=== PATIENT | male | born 1995 | race Caucasian/White ===

== ENCOUNTER 2019-08-13 00:50 | Emergency (ER) | payer SELFPAY ==
[2019-08-13 01:19] VITALS: BP 125/66; PULSE 139; RESP 18; TEMP 37.1; O2SAT 98; BMI 23.6
[2019-08-13 01:38] VITALS: BP 150/90; PULSE 130; RESP 20; O2SAT 96
--- NOTE | 2019-08-13 01:38 | W.ED.URI ---
Documented by User: REBECA Coker 08/13/19 17:31 HPI - URI/Sore Throat General: Chief Complaint: General Medical Stated Complaint: fever/vomiting Time Seen by Provider: 08/13/19 01:29 Source: patient Mode of arrival: ambulatory Limitations: no limitations History of Present Illness: HPI Narrative: Patient is a 23-year-old male who presents to ED today with complaints of a sore throat that began this morning. Patient tells me pain has progressed throughout the day. Patient is still able to eat, drink, control his own secretions. He has had two sick contacts who have recently been diagnosed with tonsillitis. Patient reports running fevers of greater than 101. He has had one episode of vomiting today. He has noticed a muffled voice. He denies neck pain or neck stiffness. MD elicited complaint: sore throat Consistency: constant Severity: moderate Able to tolerate fluids by mouth: Yes Exacerbating factors: swallowing Relieving factors: nothing Associated symptoms: Reports fever(s) (101); Deny abdominal pain, chills, chest pain, ear or mastoid pain, headache(s), nasal congestion, nausea, sinus pain or vomiting Treatments prior to arrival: other (advil earlier today) Review of Systems General: Reports: 10 or more systems reviewed and unremarkable except in HPI and below Const: Reports: fever(s) (101); Denies: chills, body aches, change in appetite, change in weight, fatigue or malaise Eyes: Denies: change in vision, blurry vision, photophobia, eye discomfort, eye discharge, floaters or seeing flashes ENMT: Reports: throat pain, enlarged tonsils and odynophagia; Denies: uvular edema, hoarseness, mouth pain, swelling of lips/tongue, oral sores, dental pain, ear or mastoid pain, ear discharge, change in hearing, tinnitus, disequilibrium, nasal discharge, nasal congestion, post nasal drip or sinus pain Card: Denies: chest pain Resp: Denies: dyspnea, productive cough or non-productive cough GI: Denies: abdominal pain, nausea or vomiting Musc: Denies: neck pain or back pain Skin/Breast: Denies: rash Neuro: Denies: headache(s), numbness in extremities, weakness in extremities or sensory changes All/Imm: Denies: facial swelling or seasonal rhinorrhea PFSH ED PFSH: Social History (Updated 03/20/19 @ 14:08 by Vida Zhu LPN) Smoking and tobacco status: current every day smoker Alcohol intake: never Physical Exam Const: COMMON NORMALS: no acute distress, average body habitus, patient oriented x3, no limitations, healthy appearing, alert and well nourished OTHER: feels febrile HENMT: COMMON NORMALS: normocephalic, atraumatic, hearing grossly normal bilaterally, external ears normal, EAC's normal, TM's normal bilaterally, Normal external nose present, Normal nasal mucous membranes and turbinates present, moist oral mucous membranes, dentition normal and gingiva normal HEAD & SCALP: normal to inspection, normocephalic and atraumatic FACE & SINUS: normal facial exam and sinuses nontender NOSE: Normal external nose present and Normal nasal mucous membranes and turbinates present EXTERNAL EAR: Yes external ears normal EXTERNAL AUDITORY CANAL: EAC's normal TYMPANIC MEMBRANE: TM's normal bilaterally THROAT: uvula midline, abnormal tonsil bilateral (extremely enlarged R>L exudative tonsillitis) erythema and exudates, posterior oropharynx abnormal and other (muffled voice; 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); no peritonsillar mass and no uvular edema Eye: COMMON NORMALS: Equal, round and reactive pupils present, EOMs intact bilaterally and conjunctivae normal CONJUNCTIVA: Yes conjunctivae normal PUPIL: Yes Equal, round and reactive pupils present Neck/C-Spine: COMMON NORMALS: full ROM and no lymphadenopathy Resp: COMMON NORMALS: normal respiratory effort Neuro: COMMON NORMALS: patient oriented x3 SENSORIUM/ORIENTATION: Yes alert Skin: COMMON NORMALS: no rashes or lesions noted GENERAL SKIN EXAM: no rashes or lesions noted Course Vital Signs: Vital signs: Vital Signs Temperature 99.4 F 08/13/19 03:31 Pulse Rate 115 H 08/13/19 04:03 Respiratory Rate 18 08/13/19 04:03 Blood Pressure 113/71 08/13/19 04:03 Pulse Oximetry 98 08/13/19 04:03 MDM - URI/Sore Throat MDM Narrative: Medical decision making narrative: Care transferred to Dr. Yancey at [address] scan; he has IV clindamycin and decadron ordered here; clinically has tonsillitis however given muffled voice, fevers, and leukocytosis of 24,[address] imaging to further evaluate and r/o abscess Lab Data: Labs: Lab Results 08/13/19 08/13/19 08/13/19 Range/Units 01:49 01:49 01:49 WBC 24.0 H (4.0-10.0) 10^3/ uL RBC 5.86 H (4.1-5.3) 10^6/u L Hgb 15.9 (11.7-16.6) g/dL Hct 47.6 (42.0-52.0) % MCV 81.2 (80-94) fL MCH 27.1 L (28.0-34.0) pg MCHC 33.4 (30.0-36.0) g/dL RDW 12.5 (12.1-15.1) % Plt Count 283 (130-400) 10^3/c mm MPV 9.7 (7.4-10.4) fL Neut % (Auto) 85.9 % Lymph % (Auto) 4.8 % [place] % (Auto) 8.2 % Eos % (Auto) 0.0 % Baso % (Auto) 0.3 % Neut # (Auto) 20.6 H (1.8-7.7) 10^3/u L Lymph # (Auto) 1.2 (0.8-4.8) 10^3/u L [place] # (Auto) 2.0 H (0.2-0.9) 10^3/u L Eos # (Auto) 0.0 (0.0-0.8) 10^3/u L Baso # (Auto) 0.1 (0.0-0.1) 10^3/u L Nucleated RBC % (a uto) 0 % Nucleated RBCs # 0.0 /100WBC Sodium 135 L (136-145) mmol/L Potassium 4.5 (3.5-5.1) mmol/L Chloride 97 L (98-107) mmol/L Carbon Dioxide 26 (22-29) mmol/L Anion Gap 16.5 (5-19) BUN 10 (6-20) mg/dL Creatinine 1.2 (0.7-1.2) mg/dL GFR Calculation 76.4 L (90-130) mL/min Glucose 125 H (65-115) mg/dL Calculated Osmolal ity 277 L (285-295) mOsm/k g Lactate (0.5-2.2) mmol/L Calcium 9.6 (8.5-10.5) mg/dL Total Bilirubin 0.5 (0.15-1.2) mg/dL AST 15 (0-40) U/L ALT 20 (0-41) U/L Alkaline Phosphata se 69 (40-130) IU/L Total Protein 7.9 (6.6-8.7) g/dL Albumin 4.4 (3.5-5.2) g/dL Globulin 3.5 (1.3-4.6) g/dL Monoscreen Negative (Negative) Group A Strep Rapi d (Negative) 08/13/19 08/13/19 Range/Units 01:49 02:25 WBC (4.0-10.0) 10^3/ uL RBC (4.1-5.3) 10^6/u L Hgb (11.7-16.6) g/dL Hct (42.0-52.0) % MCV (80-94) fL MCH (28.0-34.0) pg MCHC (30.0-36.0) g/dL RDW (12.1-15.1) % Plt Count (130-400) 10^3/c mm MPV (7.4-10.4) fL Neut % (Auto) % Lymph % (Auto) % [place] % (Auto) % Eos % (Auto) % Baso % (Auto) % Neut # (Auto) (1.8-7.7) 10^3/u L Lymph # (Auto) (0.8-4.8) 10^3/u L [place] # (Auto) (0.2-0.9) 10^3/u L Eos # (Auto) (0.0-0.8) 10^3/u L Baso # (Auto) (0.0-0.1) 10^3/u L Nucleated RBC % (a uto) % Nucleated RBCs # /100WBC Sodium (136-145) mmol/L Potassium (3.5-5.1) mmol/L Chloride (98-107) mmol/L Carbon Dioxide (22-29) mmol/L Anion Gap (5-19) BUN (6-20) mg/dL Creatinine (0.7-1.2) mg/dL GFR Calculation (90-130) mL/min Glucose (65-115) mg/dL Calculated Osmolal ity (285-295) mOsm/k g Lactate 1.0 (0.5-2.2) mmol/L Calcium (8.5-10.5) mg/dL Total Bilirubin (0.15-1.2) mg/dL AST (0-40) U/L ALT (0-41) U/L Alkaline Phosphata se (40-130) IU/L Total Protein (6.6-8.7) g/dL Albumin (3.5-5.2) g/dL Globulin (1.3-4.6) g/dL Monoscreen (Negative) Group A Strep Rapi d Negative (Negative) Discharge Plan Discharge Patient Disposition: Home, Self-Care Condition: Stable Prescriptions: New clindamycin HCl 300 mg capsule 300 mg PO Q8H 10 Days Qty: 30 RF: 0 Discharge Orders: Discharge Order (Routine); Ordered 08/13/19 Ordered By: Ajith Yancey Referrals: Binu Valenzuela MD [Physician] - 1-3 days Discharge Diet: Advance as tolerated Discharge Activity: Resume usual activity Patient Instructions: Tonsillitis (ED) Discharge Date/Time: 08/13/19 04:15 Coding Level of Care Code ED Physical Therapy Assistant Instructor for Chg Fwd Exam Detailed Documented by User: Ajith Yancey MD 08/13/19 04:17 HPI - URI/Sore Throat General: Chief Complaint: General Medical Stated Complaint: fever/vomiting Time Seen by Provider: 08/13/19 01:29 [facility] ED PFSH: Social History (Updated 03/20/19 @ 14:08 by Vida Zhu LPN) Smoking and tobacco status: current every day smoker Alcohol intake: never Course Vital Signs: Vital signs: Vital Signs Temperature 99.4 F 08/13/19 03:31 Pulse Rate 115 H 08/13/19 04:03 Respiratory Rate 18 08/13/19 04:03 Blood Pressure 113/71 08/13/19 04:03 Pulse Oximetry 98 08/13/19 04:03 MDM - URI/Sore Throat MDM Narrative: Medical decision making narrative: Mitch presents here with bilateral tonsillitis with no abscess. Patient CTs scan shows no signs of airway obstruction. Patient is handling his own secretions well here. Patient given IV Decadron and clindamycin. Will prescribe clindamycin for home and he is to follow-up with ENT in 2 to 4 days. He is return if worsening. He understands and agrees to the plan. Lab Data: Labs: Lab Results 08/13/19 08/13/19 08/13/19 Range/Units 01:49 01:49 01:49 WBC 24.0 H (4.0-10.0) 10^3/ uL RBC 5.86 H (4.1-5.3) 10^6/u L Hgb 15.9 (11.7-16.6) g/dL Hct 47.6 (42.0-52.0) % MCV 81.2 (80-94) fL MCH 27.1 L (28.0-34.0) pg MCHC 33.4 (30.0-36.0) g/dL RDW 12.5 (12.1-15.1) % Plt Count 283 (130-400) 10^3/c mm MPV 9.7 (7.4-10.4) fL Neut % (Auto) 85.9 % Lymph % (Auto) 4.8 % [place] % (Auto) 8.2 % Eos % (Auto) 0.0 % Baso % (Auto) 0.3 % Neut # (Auto) 20.6 H (1.8-7.7) 10^3/u L Lymph # (Auto) 1.2 (0.8-4.8) 10^3/u L [place] # (Auto) 2.0 H (0.2-0.9) 10^3/u L Eos # (Auto) 0.0 (0.0-0.8) 10^3/u L Baso # (Auto) 0.1 (0.0-0.1) 10^3/u L Nucleated RBC % (a uto) 0 % Nucleated RBCs # 0.0 /100WBC Sodium 135 L (136-145) mmol/L Potassium 4.5 (3.5-5.1) mmol/L Chloride 97 L (98-107) mmol/L Carbon Dioxide 26 (22-29) mmol/L Anion Gap 16.5 (5-19) BUN 10 (6-20) mg/dL Creatinine 1.2 (0.7-1.2) mg/dL GFR Calculation 76.4 L (90-130) mL/min Glucose 125 H (65-115) mg/dL Calculated Osmolal ity 277 L (285-295) mOsm/k g Lactate (0.5-2.2) mmol/L Calcium 9.6 (8.5-10.5) mg/dL Total Bilirubin 0.5 (0.15-1.2) mg/dL AST 15 (0-40) U/L ALT 20 (0-41) U/L Alkaline Phosphata se 69 (40-130) IU/L Total Protein 7.9 (6.6-8.7) g/dL Albumin 4.4 (3.5-5.2) g/dL Globulin 3.5 (1.3-4.6) g/dL Monoscreen Negative (Negative) Group A Strep Rapi d (Negative) 08/13/19 08/13/19 Range/Units 01:49 02:25 WBC (4.0-10.0) 10^3/ uL RBC (4.1-5.3) 10^6/u L Hgb (11.7-16.6) g/dL Hct (42.0-52.0) % MCV (80-94) fL MCH (28.0-34.0) pg MCHC (30.0-36.0) g/dL RDW (12.1-15.1) % Plt Count (130-400) 10^3/c mm MPV (7.4-10.4) fL Neut % (Auto) % Lymph % (Auto) % [place] % (Auto) % Eos % (Auto) % Baso % (Auto) % Neut # (Auto) (1.8-7.7) 10^3/u L Lymph # (Auto) (0.8-4.8) 10^3/u L [place] # (Auto) (0.2-0.9) 10^3/u L Eos # (Auto) (0.0-0.8) 10^3/u L Baso # (Auto) (0.0-0.1) 10^3/u L Nucleated RBC % (a uto) % Nucleated RBCs # /100WBC Sodium (136-145) mmol/L Potassium (3.5-5.1) mmol/L Chloride (98-107) mmol/L Carbon Dioxide (22-29) mmol/L Anion Gap (5-19) BUN (6-20) mg/dL Creatinine (0.7-1.2) mg/dL GFR Calculation (90-130) mL/min Glucose (65-115) mg/dL Calculated Osmolal ity (285-295) mOsm/k g Lactate 1.0 (0.5-2.2) mmol/L Calcium (8.5-10.5) mg/dL Total Bilirubin (0.15-1.2) mg/dL AST (0-40) U/L ALT (0-41) U/L Alkaline Phosphata se (40-130) IU/L Total Protein (6.6-8.7) g/dL Albumin (3.5-5.2) g/dL Globulin (1.3-4.6) g/dL Monoscreen (Negative) Group A Strep Rapi d Negative (Negative) Imaging Data^: ct neck: Attestation: I personally reviewed and interpreted this imaging study as follows: Radiologist's impression: [address] [address] [address] Scan Report Signed Patient: MITCH DALE Unit #: [id number] : 1995 Age/Sex: 23 / M ADM Date: 08/13/19 Loc: ER Room/Bed: Attending Dr: Ordering Provider/Ordering MD: Micaela Dean Date of Service: 08/13/19 Procedure(s): CT neck w con* [id number] Accession Number(s): [id number] Report Number: [id number] PROCEDURE INFORMATION: Exam: CT Neck With Contrast Exam date and time: 08/13/2019 2:31 AM Age: 23 years old Clinical indication: Throat pain; Additional info: Tonsillitis; Muffled voice; Tachy, febrile, leukocytosis TECHNIQUE: Imaging protocol: Computed tomography images of the neck with intravenous contrast. Radiation optimization: All CT scans at this facility use at least one of these dose optimization techniques: automated exposure control; mA and/or kV adjustment per patient size (includes targeted exams where dose is matched to clinical indication); or iterative reconstruction. Contrast material: OMNI 300; Contrast volume: 95 ml; Contrast route: INTRAVENOUS (IV); COMPARISON: No relevant prior studies available. RADIATION DOSE METRICS: Total DLP (mGy-cm): 721.62 FINDINGS: Sinuses: There is opacification of the left maxillary sinus which appears chronic. Nasopharynx: Mild adenoid enlargement. Oropharynx: Bilateral tonsillar enlargement, right greater than left. There is mild mass effect on the right oropharynx which is otherwise patent. A well-defined peripherally enhancing drainable fluid collection is not yet identified. Hypopharynx: Unremarkable. Larynx: Normal epiglottis. Retropharyngeal space: Unremarkable. Submandibular/Parotid glands: Glands are normal in size. Thyroid: No enlarged or calcified nodules. Lymph nodes: No lymphadenopathy. Trachea: Visualized trachea is unremarkable. Lungs: Unremarkable. Bones/joints: No acute fracture. Soft tissues: Unremarkable. CT/CT neck w con* [id number] IMPRESSION: Bilateral tonsillitis, right greater than left. A drainable fluid collection such as an abscess is not yet identified. Continue short-term follow-up as clinically warranted. Discharge Plan Discharge Patient Disposition: Home, Self-Care Condition: Stable Prescriptions: New clindamycin HCl 300 mg capsule 300 mg PO Q8H 10 Days Qty: 30 RF: 0 Discharge Orders: Discharge Order (Routine); Ordered 08/13/19 Ordered By: Ajith Yancey Referrals: Binu Valenzuela MD [Physician] - 1-3 days Discharge Diet: Advance as tolerated Discharge Activity: Resume usual activity Patient Instructions: Tonsillitis (ED) Discharge Date/Time: 08/13/19 04:15 Coding Level of Care Code ED Physical Therapy Assistant Instructor for Chg Fwd Exam Detailed
[2019-08-13] MEDS: acetaminophen 500 mg Tablet 1000 MG PO (01:41)
[2019-08-13 01:55] LABS: Basophils # 0.1 10^3/uL (0.0-0.1); Basophils % 0.3 %; Hematocrit 47.6 % (42.0-52.0); Hemoglobin 15.9 g/dL (11.7-16.6); Lymphocytes # 1.2 10^3/uL (0.8-4.8); Lymphocytes % 4.8 %; Mean Corpuscular HGB Conc 33.4 g/dL (30.0-36.0); Mean Corpuscular Hemoglobin 27.1 pg (28.0-34.0); Mean Corpuscular Volume 81.2 fL (80-94); Mean Platelet Volume 9.7 fL (7.4-10.4); Monocytes % 8.2 %; Neutrophils # 20.6 10^3/uL (1.8-7.7); Neutrophils % 85.9 %; Nucleated Red Blood Cells % 0 %; Platelet Count 283 10^3/cmm (130-400); Red Blood Count 5.86 10^6/uL (4.1-5.3); Red Cell Distribution Width 12.5 % (12.1-15.1)
[2019-08-13 02:09] LABS: Alanine Aminotransferase 20 U/L (0-41); Albumin Level 4.4 g/dL (3.5-5.2); Alkaline Phosphatase 69 IU/L (40-130); Anion Gap 16.5 (5-19); Aspartate Amino Transferase 15 U/L (0-40); Blood Urea Nitrogen 10 mg/dL (6-20); Calcium 9.6 mg/dL (8.5-10.5); Carbon Dioxide 26 mmol/L (22-29); Chloride 97 mmol/L (98-107); Globulin 3.5 g/dL (1.3-4.6); Glomerular Filtration Rate 76.4 mL/min (90-130); Glucose 125 mg/dL (65-115); Osmolality Calculated 277 mOsm/kg (285-295); Potassium 4.5 mmol/L (3.5-5.1); Sodium 135 mmol/L (136-145); Total Bilirubin 0.5 mg/dL (0.15-1.2); Total Protein 7.9 g/dL (6.6-8.7)
[2019-08-13 02:24] LABS: Monoscreen Negative (Negative)
[2019-08-13 02:25] LABS: Rapid Strep A Test Negative (Negative)
--- NOTE | 2019-08-13 02:26 | CTR_ITS ---
PROCEDURE INFORMATION: Exam: CT Neck With Contrast Exam date and time: 08/13/2019 2:31 AM Age: 23 years old Clinical indication: Throat pain; Additional info: Tonsillitis; Muffled voice; Tachy, febrile, leukocytosis TECHNIQUE: Imaging protocol: Computed tomography images of the neck with intravenous contrast. Radiation optimization: All CT scans at this facility use at least one of these dose optimization techniques: automated exposure control; mA and/or kV adjustment per patient size (includes targeted exams where dose is matched to clinical indication); or iterative reconstruction. Contrast material: OMNI 300; Contrast volume: 95 ml; Contrast route: INTRAVENOUS (IV); COMPARISON: No relevant prior studies available. RADIATION DOSE METRICS: Total DLP (mGy-cm): 721.62 FINDINGS: Sinuses: There is opacification of the left maxillary sinus which appears chronic. Nasopharynx: Mild adenoid enlargement. Oropharynx: Bilateral tonsillar enlargement, right greater than left. There is mild mass effect on the right oropharynx which is otherwise patent. A well-defined peripherally enhancing drainable fluid collection is not yet identified. Hypopharynx: Unremarkable. Larynx: Normal epiglottis. Retropharyngeal space: Unremarkable. Submandibular/Parotid glands: Glands are normal in size. Thyroid: No enlarged or calcified nodules. Lymph nodes: No lymphadenopathy. Trachea: Visualized trachea is unremarkable. Lungs: Unremarkable. Bones/joints: No acute fracture. Soft tissues: Unremarkable. CT/CT neck w con* [id number] IMPRESSION: Bilateral tonsillitis, right greater than left. A drainable fluid collection such as an abscess is not yet identified. Continue short-term follow-up as clinically warranted. Radiation Dose CTDIVOL = (mGy): DLP = 721.62 (mGy-cm)
[2019-08-13] MEDS: sodium chloride 0.9% 1,000 ML 999 ML IV (02:37)
[2019-08-13] MEDS: clindamycin 900 MG/50 ML PREMIX 100 MG IV (02:37)
[2019-08-13] MEDS: dexamethasone 4 mg/mL INJ 8 MG IVP (02:37)
[2019-08-13] MEDS: iohexol 300 mg/mL 100 mL Btl IV (02:57)
[2019-08-13 03:31] VITALS: BP 109/55; PULSE 118; RESP 18; TEMP 37.4; O2SAT 96
[2019-08-13 04:03] VITALS: BP 113/71; PULSE 115; RESP 18; O2SAT 98
--- NOTE | 2019-08-13 13:55 | DCPLANNER ---
warehouse manager had message to schedule a follow up appointment for patient with ,ENT. warehouse manager printed patients information and faxed it to Dr. Flowers office. warehouse manager will call for appointment information.
--- NOTE | 2019-08-14 10:45 | DCPLANNER ---
Salma from Dr. Flowers office called foster care case manager stating that a follow up appointment is scheduled for Monday, September at 3:45 and clinic called patient with appointment information.
--- NOTE | 2019-10-10 13:40 | DCPLANNER ---
Patient did not attend appointment scheduled for 10.07.[address] Valenzuela.
== END 2019-08-13 04:15 | disposition home or self-care (01) ==
PROVIDERS: Physician Assistant; Emergency Provider Emergency Medicine
DX: R50.9 Fever, unspecified (principal); J02.9 Acute pharyngitis, unspecified; F17.210 Nicotine dependence, cigarettes, uncomplicated
CPT/HCPCS: 12345; 36415; 70491; 80053; 83605; 85025; 86308; 87040; 87081; 87880; 96365; 96375; 99283; J1100; J3490; J7030; Q9967

== ENCOUNTER 2020-09-02 22:50 | Emergency (ER) | payer SELFPAY ==
[2020-09-02 22:58] VITALS: BP 122/88; PULSE 122; RESP 16; TEMP 37.3; O2SAT 95; BMI 27.3
--- NOTE | 2020-09-02 23:07 | XRR_ITS ---
PROCEDURE INFORMATION: Exam: XR Right Hand Exam date and time: 09/02/2020 11:07 PM Age: 24 years old Clinical indication: Injury or trauma; Crushing; Hand; Injury details: PT was working on car on two jacks. PT states car came off jacks and rolled back onto his right arm. PT states he is unable to move 2nd and 3rd digit. Pain from elbow to fingers on right arm. TECHNIQUE: Imaging protocol: XR Right hand. Views: 3 or more views. COMPARISON: No relevant prior studies available. FINDINGS: Bones/joints: Normal. Soft tissues: Normal. XR/XR hand RT min 3V* [id number] IMPRESSION: No acute findings.
--- NOTE | 2020-09-02 23:07 | XRR_ITS ---
PROCEDURE INFORMATION: Exam: XR Right Forearm Exam date and time: 09/02/2020 11:07 PM Age: 24 years old Clinical indication: Injury or trauma; Crushing; Arm, lower; Injury details: PT was working on car on two jacks. PT states car came off jacks and rolled back onto his right arm. PT states he is unable to move 2nd and 3rd digit. Pain from elbow to fingers on right arm. TECHNIQUE: Imaging protocol: XR Right forearm. Views: 2 views. COMPARISON: No relevant prior studies available. FINDINGS: Bones/joints: Normal. Soft tissues: Normal. XR/XR forearm RT 2V [id number] IMPRESSION: No acute findings.
--- NOTE | 2020-09-02 23:07 | XRR_ITS ---
PROCEDURE INFORMATION: Exam: XR Right Elbow Exam date and time: 09/02/2020 11:07 PM Age: 24 years old Clinical indication: Injury or trauma; Crushing; Injury details: PT was working on car on two jacks. PT states car came off jacks and rolled back onto his right arm. PT states he is unable to move 2nd and 3rd digit. Pain from elbow to fingers on right arm. TECHNIQUE: Imaging protocol: XR Right elbow. Views: 3 or more views. COMPARISON: No relevant prior studies available. FINDINGS: Bones/joints: Normal. Soft tissues: Normal. XR/XR elbow RT min 3V* [id number] IMPRESSION: No acute findings.
--- NOTE | 2020-09-02 23:26 | W.ED.TRAUMA ---
HPI - Trauma General: Chief Complaint: Trauma Stated Complaint: CAR FELL ON HIM Time Seen by Provider: 09/02/20 23:20 History of Present Illness: HPI narrative: Patient was working on his car and it slipped off the gilson with the Rotert of the car coming to rest on his right hand. Patient has several abrasions to his forearm bilaterally and his right face. Patient appears well. Patient appears no acute distress. Patient reports most of his pain is in his right hand. Review of Systems General: Reports: 10 or more systems reviewed and unremarkable except in HPI and below Musc: Reports: other (Right upper extremity injury) Skin/Breast: Reports: other (Skin abrasions) [facility] ED PFSH: Social History (Updated 03/20/19 @ 14:08 by Vida Zhu LPN) Smoking and tobacco status: current every day smoker Alcohol intake: never Physical Exam Const: COMMON NORMALS: no acute distress and patient oriented x3 GENERAL APPEARANCE: cooperative HENMT: COMMON NORMALS: Normal external nose present HEAD & SCALP: other (Abrasion right facial cheek) NOSE: Normal external nose present MOUTH: Normal oral and palatal mucosa present THROAT: posterior oropharynx normal Eye: GENERAL EYE: appearance normal, both eyes and all related structures Neck/C-Spine: COMMON NORMALS: full ROM Lymph: LYMPHATIC: no lymphadenopathy noted Chest: COMMONS NORMALS: normal inspection of the chest Resp: COMMON NORMALS: normal respiratory effort EFFORT & INSPECTION: Yes able to speak in complete sentences Cardio: COMMON NORMALS: regular rate and regular rhythm RATE: regular rate RHYTHM: regular rhythm GI: COMMON NORMALS: non-tender : COMMON NORMALS: Yes no CVA tenderness BLADDER/KIDNEY EXAM: Yes no CVA tenderness Back/Pelvis: COMMON NORMALS: no CVA tenderness and thoracic and lumbar spine normal to inspection Extremity: NARRATIVE EXTREMITY EXAM: Abrasion to bilateral forearms, abrasion to the right hand with tenderness to the third and fourth digit. Patient is guarded with movement due to pain and discomfort. Cap refill is intact. No bony deformity is palpated. Neuro: COMMON NORMALS: patient oriented x3 and moves all extremities Psych: COMMON NORMALS: mental status grossly normal and cooperative Skin: COMMON NORMALS: no rashes or lesions noted GENERAL SKIN EXAM: no rashes or lesions noted Course Vital Signs: Vital signs: Vital Signs Temperature 99.1 F 09/02/20 22:58 Pulse Rate 122 H 07/14/21 22:58 Respiratory Rate 16 09/02/20 22:58 Blood Pressure 122/88 09/02/20 22:58 Pulse Oximetry 95 09/02/20 22:58 MDM - Trauma MDM Narrative: Medical decision making narrative: Patient comes in for injury to the right hand right forearm and face. On exam patient is alert and oriented. Patient appears well. Patient does have an abrasion to his right facial cheek, abrasions to bilateral forearms, and abrasion to his dorsal hand. Patient has some swelling and tenderness to the middle finger and the ring finger on the right hand. Patient is guarded with movement due to swelling and pain. Cap refill and intact. Differential diagnosis includes fracture, abrasions, contusions. X-ray notes no obvious fractures of the hand forearm or elbow. Reviewed exam with patient and his female significant other with recommendations for wound cleaning and use of ibuprofen and acetaminophen for pain. Patient and family both report understanding. Discharge Plan Discharge Patient Disposition: Home Clinical Impression: Contusion of hand including fingers Qualifiers: Encounter type: initial encounter Laterality: right Qualified Code(s): S60.221A - Contusion of right hand, initial encounter Abrasion forearm Qualifiers: Encounter type: initial encounter Laterality: unspecified laterality Qualified Code(s): S50.819A - Abrasion of unspecified forearm, initial encounter Condition: Stable Discharge Orders: Discharge ED (Routine); Ordered 09/02/20 Ordered By: Jose Alejandro Burns Discharge Diet: Usual diet Discharge Activity: Increase activity as tolerated Patient Instructions: Abrasion (ED), Opioid Safety Activity Restrictions/Additional Instructions: Clean wounds thoroughly, apply antibiotic ointment twice daily. Activity as tolerated. Use ice to the area for comfort. Use acetaminophen and ibuprofen for pain. Follow-up with primary care for further instruction. Return to the emergency department for new concerns. Coding Level of Care Code ED Behavioral Therapy Coordinator for Lynn Cody
[2020-09-02] MEDS: ibuprofen 800 mg tablet PO (23:34)
[2020-09-03 00:01] VITALS: PULSE 117; RESP 16; TEMP 36.8; O2SAT 95
--- NOTE | 2020-09-03 00:03 | PC.NURSE ---
Patient has small abrasions on fingers and right arm. Patient states he wants to go home and shower first then he will dress them himself.
== END 2020-09-03 00:03 | disposition home or self-care (01) ==
PROVIDERS: Emergency Provider Nurse Practitioner Family
DX: S60.221A Contusion of right hand, initial encounter (principal); S50.812A Abrasion of left forearm, initial encounter; S50.811A Abrasion of right forearm, initial encounter; W20.8XXA Other cause of strike by thrown, projected or falling object, initial encounter; F17.210 Nicotine dependence, cigarettes, uncomplicated
CPT/HCPCS: 73080; 73090; 73130; 99283